=== PATIENT | female | born 1950 | race Caucasian/White ===

== ENCOUNTER 2018-12-15 11:35 | Day surgery (SDC) | payer MEDICARE, OTHER ==
[~2018-12-15] VITALS: Ht 160 cm; Wt 80.1 kg
[2018-12-15] MEDS ORDERED: TELM20 PO (13:13)
[2018-12-15] MEDS ORDERED: AMLO5 PO (13:14)
[2018-12-15] MEDS ORDERED: DULO30 PO (13:14)
[2018-12-15] MEDS ORDERED: TOPI25 PO (13:14)
[2018-12-15] MEDS ORDERED: PANT40 PO (13:15)
[2018-12-15] MEDS ORDERED: Synthroid/Le0.075 MG PO (13:15)
[2018-12-15] MEDS ORDERED: Zofran8 MG PO (13:17)
[2018-12-15] MEDS ORDERED: Esgic Tablet1 EACH PO (13:17)
[2018-12-15] MEDS ORDERED: CHELATED IRON PO (13:18)
[2018-12-15] MEDS ORDERED: PROM25 PO (13:18)
--- NOTE | 2018-12-15 14:00 | NUR ---
12/15/18 1400 Radha Garcia PT C/O OF DELAY, ASKING HOW MUCH LONGER. GAVE HER A TIME ESTIMATE AND APPOLIGIZED FOR THE DELAY. EXPLAINED THAT THE PREVIOUS CASE WAS TAKING LONGER THAN EXPECTED. PT VERBALIZES UNDERSTANDING WITH DISGRUNTLED TONE IN VOICE. CALL LIGHT WITHIN REACH, FRIEND AT BEDSIDE. WILL CONTINUE TO MONITOR.
== END 2018-12-15 15:11 | disposition home or self-care (01) ==
LOC: ORSCSDS 11:35
PROVIDERS: Internal Medicine Gastroenterology
PROC: 0DB58ZX Excision of Esophagus, Via Natural or Artificial Opening Endoscopic, Diagnostic (ICD-10-PCS; principal; 2018-12-15 13:15)
PROC: 0DB68ZX Excision of Stomach, Via Natural or Artificial Opening Endoscopic, Diagnostic (ICD-10-PCS; principal; 2018-12-15 13:15)
DX: K21.0 Gastro-esophageal reflux disease with esophagitis (principal); K92.0 Hematemesis; R13.10 Dysphagia, unspecified; K44.9 Diaphragmatic hernia without obstruction or gangrene; I10 Essential (primary) hypertension; E11.9 Type 2 diabetes mellitus without complications; E03.9 Hypothyroidism, unspecified; Z87.891 Personal history of nicotine dependence; Z79.899 Other long term (current) drug therapy
CPT/HCPCS: 88305; 88342; J2405; J2704; J7120